=== PATIENT | male | born 1985 | race Caucasian/White ===

== ENCOUNTER 2020-12-18 14:13 | Outpatient (REF) | payer BC, SELFPAY ==
[2020-12-18 18:39] LABS: Free T4 (Free Thyroxine) 1.02 ng/dL (0.71-1.85); Thyroid Stimulating Hormone 1.11 uIU/mL (0.32-4.0)
== END 2020-12-18 14:14 | disposition home or self-care (01) ==
LOC: HO.MANLDS 14:13
PROVIDERS: PCP Internal Medicine; Visit Provider Physician Assistant
DX: R00.0 Tachycardia, unspecified (principal)
CPT/HCPCS: 36415; 84439; 84443